=== PATIENT | female | born 1985 | race Caucasian/White ===

== ENCOUNTER 2017-01-31 11:44 | Emergency (ER) | payer MEDICAID ==
[2017-01-31] MEDS ORDERED: NO HOME MEDICATION XX (11:45)
[2017-01-31] MEDS ORDERED: NORCO 5-325 TA1 EACH PO (13:10)
[2017-01-31] MEDS ORDERED: PENICILLIN V P500 M1 PO (13:11)
[2017-08-10] MEDS ORDERED: PRENATAL VITAM1 EAC5 PO (07:57)
[2017-08-15] MEDS ORDERED: PERCOCET 5-3251 EACH PO (15:20)
[2017-08-15] MEDS ORDERED: IBUPROFEN600 M1 PO (15:20)
[2017-08-15] MEDS ORDERED: FEOSOL325 M1 PO (15:21)
== END 2017-01-31 13:21 ==
LOC: EDMED 11:44
DX: K02.9 Dental caries, unspecified (principal); F17.210 Nicotine dependence, cigarettes, uncomplicated
CPT/HCPCS: J1885